=== PATIENT | male | born 1995 | race African-American/Black ===

== ENCOUNTER 2019-06-15 23:10 | Emergency (ER) | payer OTHER ==
[2019-06-15] MEDS ORDERED: DIPHENHYDRAMINE 50 MG/ML VIAL ONE (23:53)
[2019-06-15] MEDS ORDERED: FAMOTIDINE 20 MG/2 ML VIAL IV ONE (23:53)
[2019-06-15] MEDS ORDERED: METHYLPREDNISOLONE 125 MG INJ ONE (23:53)
[2019-06-16 00:07] LABS: Urine Blood NEGATIVE (NEG); Urine Glucose NEGATIVE (NEG); Urine Protein NEGATIVE (NEG); Urine Specific Gravity >1.030 (1.005-1.030); Urine pH 6.5 (5.0-7.0)
--- NOTE | 2019-06-16 01:18 | EDPHYS ---
Physician Documentation [facility] Name: Dany Arce Age: 24 yrs Sex: Male : 1995 Arrival Date: 06/15/2019 Time: 23:15 Bed 20 Private MD: Dacia Saldivar ED Physician Emmanuel Berumen HPI: 06/16 03:21 This 24 yrs old Black Male presents to ER via Ambulatory with complaints of Allergic tw4 Reaction, Breathing Difficulty. 03:21 The patient presents with rash, of the right cheek and left cheek, redness of skin. tw4 Onset: The symptoms/episode began/occurred today. Associated signs and symptoms: The patient has no apparent associated signs or symptoms. Possible causes: The patient has no known obvious cause for the symptoms. At home the patient or guardian has treated the symptoms with nothing. The patient has not experienced similar symptoms in the past. Historical: - Allergies: 06/15 23:26 No Known Allergies; ak1 - Home Meds: 23:26 None [Active]; ak1 - PMHx: 23:26 Down Syndrome; ak1 - PSHx: 23:26 Tonsillectomy; ak1 - Immunization history:: Adult Immunizations up to date, pt PCP Dr. Barfield. - Social history:: Smoking status: Patient/guardian denies using tobacco. - Ebola Screening: : No symptoms or risks identified at this time. ROS: 06/16 03:21 Constitutional: Negative for fever, chills, and weight loss, Eyes: Negative for injury, tw4 pain, redness, and discharge, Cardiovascular: Negative for chest pain, palpitations, and edema, Respiratory: Negative for shortness of breath, cough, wheezing, and pleuritic chest pain, Abdomen/GI: Negative for abdominal pain, nausea, vomiting, diarrhea, and constipation, Back: Negative for injury and pain. Skin: Positive for rash. Exam: 03:21 Constitutional: This is a well developed, well nourished patient who is awake, alert, tw4 and in no acute distress. Head/Face: Normocephalic, atraumatic. Chest/axilla: Normal chest wall appearance and motion. Nontender with no deformity. No lesions are appreciated. Cardiovascular: Regular rate and rhythm with a normal S1 and S2. No gallops, murmurs, or rubs. Normal PMI, no JVD. No pulse deficits. Respiratory: Lungs have equal breath sounds bilaterally, clear to auscultation and percussion. No rales, rhonchi or wheezes noted. No increased work of breathing, no retractions or nasal flaring. Abdomen/GI: Soft, non-tender, with normal bowel sounds. No distension or tympany. No guarding or rebound. No evidence of tenderness throughout. 03:21 Skin: urticaria. Vital Signs: 06/15 23:24 BP 131 / 81; Pulse 107; Resp 18; Temp 98.7(TE); Pulse Ox 100% on R/A; Weight 105.82 kg ak1 (M); 06/16 00:15 BP 119 / 75; Pulse 90; Resp 18; Temp 98.5; Pulse Ox 98% ; rr5 01:15 BP 122 / 80; Pulse 95; Resp 17; Pulse Ox 99% on R/A; rr5 MDM: 06/15 23:28 Patient medically screened. tw4 06/16 03:21 Differential diagnosis: angioedema, urticaria. Data reviewed: vital signs, nurses tw4 notes. Counseling: I had a detailed discussion with the patient and/or guardian regarding: the historical points, exam findings, and any diagnostic results supporting the discharge/admit diagnosis. Medication response: Solumedrol. Special discussion: I discussed with the patient/guardian in detail that at this point there is no indication for admission to the hospital. It is understood, however, that if the symptoms persist or worsen the patient needs to return immediately for re-evaluation. 06/15 23:53 Order name: Urine Dipstick--Ancillary (enter results) mw2 Administered Medications: 00:00 Drug: Pepcid 20 mg Route: IVP; Site: left antecubital; rr5 01:00 Follow up: Response: No adverse reaction rr5 00:02 Drug: Benadryl 25 mg Route: IVP; Site: left antecubital; rr5 01:00 Follow up: Response: No adverse reaction rr5 00:04 Drug: SOLU-Medrol 125 mg Route: IVP; Site: left antecubital; rr5 01:05 Follow up: Response: No adverse reaction rr5 Disposition: 06/16/19 01:17 Discharged to Home. Impression: Allergic reaction. - Condition is Stable. - Discharge Instructions: Allergies, Adult. - Prescriptions for Medrol (Incoente) 4 mg Oral Tablets, Dose Pack - take 1 tablet by ORAL route as directed - follow package instructions; 1 packet. - Medication Reconciliation Form, Thank You Letter, Antibiotic Education, Prescription Opioid Use form. - Follow up: Dacia Saldivar MD; When: Upon discharge from the Emergency Department; Reason: If symptoms return, Recheck today's complaints, Continuance of care. - Problem is new. - Symptoms have improved. Signatures: Dispatcher [employer] EDMS Sabrina Ashraf RN RN ak1 Emmanuel Berumen MD MD tw4 August Deasi RN RN rr5 Corrections: (The following items were deleted from the chart) 01:28 01:17 06/16/2019 01:17 Discharged to Home. Impression: Allergic reaction. Condition is rr5 Stable. Forms are Medication Reconciliation Form, Thank You Letter, Antibiotic Education, Prescription Opioid Use. Follow up: Dacia Saldivar; When: Upon discharge from the Emergency Department; Reason: If symptoms return, Recheck today's complaints, Continuance of care. Problem is new. Symptoms have improved. tw4
--- NOTE | 2019-06-16 01:18 | ER ---
Nurse's Notes [facility] Name: Dany Arce Age: 24 yrs Sex: Male : 1995 Arrival Date: 06/15/2019 Time: 23:15 Bed 20 Private MD: Dacia Saldivar Diagnosis: Allergic reaction Presentation: 06/15 23:26 Presenting complaint: Mother states: at 1900 pt with swelling under both eyes, ak1 bilateral eye redness. pt was given Benadryl at 1945. mother stated pt with swelling at the neck area. no resp distress, no drooling noted during triage. Transition of care: patient was not received from another setting of care. Onset: The symptoms/episode began/occurred today. Anaphylaxis evaluation, no signs or symptoms of anaphylaxis were noted. Onset of symptoms was June 15, 2019 at 19:30. Risk Assessment: Do you want to hurt yourself or someone else? Patient reports no desire to harm self or others. Initial Sepsis Screen: Does the patient meet any 2 criteria? No. Patient's initial sepsis screen is negative. Does the patient have a suspected source of infection? No. Patient's initial sepsis screen is negative. Care prior to arrival: None. 23:26 Method Of Arrival: Ambulatory ak1 23:26 Acuity: NILDA 4 ak1 Triage Assessment: 23:26 General: Appears in no apparent distress. Behavior is calm, cooperative. Pain: Denies ak1 pain. Historical: - Allergies: 23:26 No Known Allergies; ak1 - Home Meds: 23:26 None [Active]; ak1 - PMHx: 23:26 Down Syndrome; ak1 - PSHx: 23:26 Tonsillectomy; ak1 - Immunization history:: Adult Immunizations up to date, pt PCP Dr. Barfield. - Social history:: Smoking status: Patient/guardian denies using tobacco. - Ebola Screening: : No symptoms or risks identified at this time. Screenin:28 Abuse screen: Denies threats or abuse. Denies injuries from another. Nutritional ak1 screening: No deficits noted. Tuberculosis screening: No symptoms or risk factors identified. Fall Risk None identified. Assessment: 23:35 General: Appears in no apparent distress. comfortable, Behavior is calm, cooperative. rr5 Pain: Denies pain. Neuro: Level of Consciousness is awake, alert, obeys commands, Oriented to person, down syndrome. Cardiovascular: Capillary refill < 3 seconds Patient's skin is warm and dry. Respiratory: Airway is patent Respiratory effort is even, unlabored, Respiratory pattern is regular, symmetrical, Breath sounds are clear bilaterally. GI: No signs and/or symptoms were reported involving the gastrointestinal system. : No signs and/or symptoms were reported regarding the genitourinary system. EENT: Eyes swelling. Parent/caregiver reports the patient having eyes swelling. Derm: Skin temperature is warm Parent/caregiver reports the patient having swelling on the neck area. Musculoskeletal: Circulation, motion, and sensation intact. Capillary refill < 3 seconds. 06/16 00:30 Reassessment: Patient appears in no apparent distress at this time. Patient and/or rr5 family updated on plan of care and expected duration. Pain level reassessed. awaiting for review. 01:25 Reassessment: Patient appears in no apparent distress at this time. Patient and/or rr5 family updated on plan of care and expected duration. Pain level reassessed. discharge instruction given and explained to hospital coordinator without complaints made. verbalized understanding. Patient states feeling better. Patient states symptoms have improved. Vital Signs: 06/15 23:24 BP 131 / 81; Pulse 107; Resp 18; Temp 98.7(TE); Pulse Ox 100% on R/A; Weight 105.82 kg ak1 (M); 06/16 00:15 BP 119 / 75; Pulse 90; Resp 18; Temp 98.5; Pulse Ox 98% ; rr5 01:15 BP 122 / 80; Pulse 95; Resp 17; Pulse Ox 99% on R/A; rr5 ED Course: 06/15 23:15 Patient arrived in ED. es 23:15 Dacia Saldivar MD is Private Physician. es 23:19 August Desai RN is Primary Nurse. rr5 23:24 Arm band placed on Patient placed in an exam room, on a stretcher, Patient notified of ak1 wait time. 23:28 Triage completed. ak1 23:29 Emmanuel Berumen MD is Attending Physician. tw4 23:35 Patient has correct armband on for positive identification. Bed in low position. Call rr5 light in reach. 23:55 Inserted saline lock: 24 gauge in left antecubital area, using aseptic technique. rr5 ,using aseptic technique. by baltazar injection mold technician. 06/16 01:16 Dacia Saldivar MD is Referral Physician. tw4 01:27 No provider procedures requiring assistance completed. IV discontinued, intact, rr5 bleeding controlled, No redness/swelling at site. Pressure dressing applied. Administered Medications: 00:00 Drug: Pepcid 20 mg Route: IVP; Site: left antecubital; rr5 01:00 Follow up: Response: No adverse reaction rr5 00:02 Drug: Benadryl 25 mg Route: IVP; Site: left antecubital; rr5 01:00 Follow up: Response: No adverse reaction rr5 00:04 Drug: SOLU-Medrol 125 mg Route: IVP; Site: left antecubital; rr5 01:05 Follow up: Response: No adverse reaction rr5 Outcome: 01:17 Discharge ordered by . tw4 01:27 Discharged to home ambulatory, with family. rr5 01:27 Condition: stable 01:27 Discharge instructions given to family, Instructed on discharge instructions, follow up and referral plans. Demonstrated understanding of instructions, follow-up care, medications, Prescriptions given X 1. 01:28 Patient left the ED. rr5 Signatures: Deja Grover Amber RN RN ak1 Emmanuel Berumen MD MD tw4 August Desai RN RN rr5
== END 2019-06-16 01:28 | disposition home or self-care (01) ==
LOC: ER 23:10
DX: T78.40XA Allergy, unspecified, initial encounter (principal); X58.XXXA Exposure to other specified factors, initial encounter
CPT/HCPCS: 81003; 96375; 96374; 99283; J2930

== ENCOUNTER 2020-06-27 20:09 | Emergency (ER) | payer OTHER ==
--- OUTSIDE RECORDS SUMMARY | 2020-06-27 20:12 | XMS REPORT | Continuity of Care Document ---
:1995 Author Organization [facility] t Address [address] [place] [address] Care Team Providers Name Role Phone Mika Bingham Attending Clinician Problems This patient has no known problems. Allergies, Adverse Reactions, Alerts This patient has no known allergies or adverse reactions. Medications This patient has no known medications. Procedures This patient has no known procedures. Encounters Start End Encounter Admission Attending Care Care Encounter Source Date/Time Date/Time Type Type Clinicians Facility Department ID 2020-03-07 2020-03-07 Office LULU Vazquez [id number] 09:52:41 10:07:41 Visit [facility] [id number] Surgical [id number] Specialti [id number] [place] Results This patient has no known results.
--- NOTE | 2020-06-27 21:02 | RAD REPORT ---
EXAM DESCRIPTION: CT - Spine Lumbar Wo Con - 06/27/2020 8:50 pm CLINICAL HISTORY: Radiculopathy. LOWER BACK PAIN COMPARISON: No comparisons TECHNIQUE: Axial noncontrast CT imaging of the lumbar spine was performed with coronal and sagittal re-formatted images. All CT scans are performed using dose optimization technique as appropriate and may include automated exposure control or mA/KV adjustment according to patient size. FINDINGS: No acute lumbar spine fracture seen. No aggressive marrow pattern or malalignment. Paraspinal tissues are normal in thickness. No paraspinal abscess or hematoma seen. Mild posterior disc bulge is seen at the lower lumbar levels. IMPRESSION: No acute lumbar spine finding. Mild posterior disc bulges at the lower lumbar levels seen.
--- NOTE | 2020-06-27 21:06 | RAD REPORT ---
EXAM DESCRIPTION: CT - Pelvis Wo Cont - 06/27/2020 8:50 pm CLINICAL HISTORY: PAIN Pain and swelling COMPARISON: No comparisons TECHNIQUE: All CT scans are performed using dose optimization technique as appropriate and may inclu de automated exposure control or mA/KV adjustment according to patient size. FINDINGS: No fracture, dislocation or evidence of AVN. Both sacroiliac joints are symmetric. Both sacral ala are intact. No soft tissue mass or hematoma seen. Moderate stool is present in the rectosigmoid colon. IMPRESSION: No acute finding is evident.
--- NOTE | 2020-06-27 21:18 | ER ---
Nurse's Notes [facility] Name: Dany Arce Age: 25 yrs Sex: Male : 1995 Arrival Date: 06/27/2020 Time: 20:12 Bed 18 Private MD: Diagnosis: Low back pain-bulging disc Presentation: 06/27 20:42 Chief complaint: Parent and/or Guardian states: " For the past 2.5 to 3 weeks he's been vc walking around acting like he doesn't want to bend over. He says "I hurt" and wants to just sit down.". Coronavirus screen: Client denies travel out of the [place] in the last 14 days. At this time, the client does not indicate any symptoms associated with coronavirus-19. Ebola Screen: No symptoms or risks identified at this time. Initial Sepsis Screen: Does the patient meet any 2 criteria? HR > 90 bpm. No. Patient's initial sepsis screen is negative. Does the patient have a suspected source of infection? No. Patient's initial sepsis screen is negative. Risk Assessment: Do you want to hurt yourself or someone else? Patient reports no desire to harm self or others. Onset of symptoms is unknown. 20:42 Method Of Arrival: Wheelchair vc 20:42 Acuity: NILDA 4 vc Triage Assessment: 20:45 General: Appears in no apparent distress. comfortable, Behavior is calm, cooperative. vc Pain: Unable to use pain scale. Patient unable to verbalize whether or not he is in pain. Patient does not appear to be in any pain. Historical: - Allergies: 20:44 No Known Allergies; vc - Home Meds: 20:44 None [Active]; vc - PMHx: 20:44 down syndrome; vc - PSHx: 20:44 Tonsillectomy; vc - Immunization history:: Adult Immunizations up to date. - Social history:: Smoking status: Patient denies any tobacco usage or history of. Screenin:44 Abuse screen: Denies threats or abuse. Nutritional screening: No deficits noted. vc Tuberculosis screening: No symptoms or risk factors identified. Fall Risk None identified. Assessment: 20:20 General: Appears in no apparent distress. uncomfortable, obese, Behavior is vc cooperative, quiet. Neuro: Level of Consciousness is awake, obeys commands, Oriented to person. Cardiovascular: Capillary refill < 3 seconds Patient's skin is warm and dry. Respiratory: No deficits noted. GI: No signs and/or symptoms were reported involving the gastrointestinal system. : No signs and/or symptoms were reported regarding the genitourinary system. Derm: Skin is intact, is healthy with good turgor, Skin temperature is warm. 21:45 Reassessment: Patient and/or family updated on plan of care and expected duration. Pain vc level reassessed. Patient is alert, oriented x 3, equal unlabored respirations, skin warm/dry/pink. Waiting on disc from CT. 22:05 Reassessment: Patient and/or family updated on plan of care and expected duration. Pain vc level reassessed. Patient is alert, oriented x 3, equal unlabored respirations, skin warm/dry/pink. Vital Signs: 20:42 BP 116 / 49; Pulse 104; Resp 16; Temp 99.4; Pulse Ox 96% on R/A; vc ED Course: 20:12 Patient arrived in ED. cf2 20:19 Laura Valerio, RN is Primary Nurse. vc 20:22 Zainab Walden FNP-C is PHCP. kb 20:22 Rafael Gonzalez MD is Attending Physician. kb 20:44 Triage completed. vc 20:46 Arm band placed on. vc 20:46 Patient has correct armband on for positive identification. Patient has correct armband vc on for positive identification. Bed in low position. Adult w/ patient. Pulse ox on. NIBP on. 20:50 CT Lumbar Spine Wo Con In Process Unspecified. EDMS 20:[address] In Process Unspecified. EDMS 22:00 No provider procedures requiring assistance completed. Patient did not have IV access vc during this emergency room visit. Administered Medications: No medications were administered Outcome: 21:18 Discharge ordered by . kb 21:45 Discharged to home ambulatory, with family. vc 21:45 Condition: good 21:45 Discharge instructions given to family, waterproofer helper, Instructed on discharge instructions, follow up and referral plans. medication usage, Demonstrated understanding of instructions, follow-up care, medications, Prescriptions given X 2. 22:07 Patient left the ED. vc Signatures: Dispatcher [employer] EDOK Zainab Walden FNP-C FNP-Ckb Frazier Celesta cf2 Laura Valerio, RN RN vc Corrections: (The following items were deleted from the chart) 22:48 22:06 Reassessment: Waiting on disc from CT. vc vc
--- NOTE | 2020-06-27 21:18 | EDPHYS ---
Physician Documentation [facility] Name: Dany Arce Age: 25 yrs Sex: Male : 1995 Arrival Date: 06/27/2020 Time: 20:12 Bed 18 Private MD: EDWARD Physician Rafael Gonzalez HPI: 06/27 22:04 This 25 yrs old Black Male presents to ER via Wheelchair with complaints of Body Pain. kb 22:04 The patient presents with pain that is acute, with no known mechanism of injury. The kb symptoms are located in the unknown. Onset: The symptoms/episode began/occurred 3 week(s) ago. Modifying factors: The patient symptoms are alleviated by sitting. Associated signs and symptoms: Pertinent positives: none Pertinent negatives: abdominal pain, fever, urinary retention, weakness. Severity of symptoms: At their worst the symptoms were moderate, in the emergency department the symptoms have resolved. The patient has not experienced similar symptoms in the past. The patient has not recently seen a physician. Mother reports pt has been having episodes of pain intermittently for 3 weeks. States he will be in pain and then will not be. States she is unable to determine where the pain is coming from and the pt is unable to really tell her due to special needs. States they will [place] walking in the mall and after 20 minutes she can tell he is in pain and has to sit down. Reports times when she asks him to do something and he cannot bend over, he will bend to the side. Today she saw tears in his eyes so she wanted to get it checked out. Pt ambulated from wheelchair to stretcher, got onto stretcher without assist and had no obvious pain. Passive ROM of hips, knees and ankles with no distress noted. Pt has no complaints on palpation of extremities, pelvis or back. . Historical: - Allergies: 20:44 No Known Allergies; vc - Home Meds: 20:44 None [Active]; vc - PMHx: 20:44 down syndrome; vc - PSHx: 20:44 Tonsillectomy; vc - Immunization history:: Adult Immunizations up to date. - Social history:: Smoking status: Patient denies any tobacco usage or history of. ROS: 22:04 Constitutional: Negative for fever, chills, and weight loss, Cardiovascular: Negative kb for chest pain, palpitations, and edema, Respiratory: Negative for shortness of breath, cough, wheezing, and pleuritic chest pain, Abdomen/GI: Negative for abdominal pain, nausea, vomiting, diarrhea, and constipation, Back: Negative for injury and pain, MS/Extremity: Negative for injury and deformity, Skin: Negative for injury, rash, and discoloration, Neuro: Negative for headache, weakness, numbness, tingling, and seizure. Exam: 22:04 Constitutional: This is a well developed, well nourished patient who is awake, alert, kb and in no acute distress. Head/Face: Normocephalic, atraumatic. Chest/axilla: Normal chest wall appearance and motion. Nontender with no deformity. No lesions are appreciated. Cardiovascular: Regular rate and rhythm with a normal S1 and S2. No gallops, murmurs, or rubs. Normal PMI, no JVD. No pulse deficits. Respiratory: Lungs have equal breath sounds bilaterally, clear to auscultation and percussion. No rales, rhonchi or wheezes noted. No increased work of breathing, no retractions or nasal flaring. Abdomen/GI: Soft, non-tender, with normal bowel sounds. No distension or tympany. No guarding or rebound. No evidence of tenderness throughout. Back: No spinal tenderness. No costovertebral tenderness. Full range of motion. Skin: Warm, dry with normal turgor. Normal color with no rashes, no lesions, and no evidence of cellulitis. MS/ Extremity: Pulses equal, no cyanosis. Neurovascular intact. Full, normal range of motion. Neuro: Awake and alert, GCS 15, oriented to person, place, time, and situation. Cranial nerves II-XII grossly intact. Motor strength 5/5 in all extremities. Sensory grossly intact. Cerebellar exam normal. Normal gait. Vital Signs: 20:42 BP 116 / 49; Pulse 104; Resp 16; Temp 99.4; Pulse Ox 96% on R/A; vc MDM: 20:23 Patient medically screened. kb 21:58 Data reviewed: vital signs, nurses notes. Data interpreted: Pulse oximetry: on room air kb is 96 %. Interpretation: normal. Counseling: I had a detailed discussion with the patient and/or guardian regarding: the historical points, exam findings, and any diagnostic results supporting the discharge/admit diagnosis, radiology results, the need for outpatient follow up, a family practitioner, to return to the emergency department if symptoms worsen or persist or if there are any questions or concerns that arise at home. 06/27 20:36 Order name: CT Lumbar Spine Wo Con; Complete Time: 21:10 kb 06/27 20:36 Order name: Pelvis Wo Cont CT; Complete Time: 21:10 kb Administered Medications: No medications were administered Disposition: 06/27/20 21:18 Discharged to Home. Impression: Low back pain - bulging disc. - Condition is Stable. - Discharge Instructions: Musculoskeletal Pain, Back Pain, Adult, [id number], Back Exercises, [id number]. - Prescriptions for Ibuprofen 600 mg Oral Tablet - take 1 tablet by ORAL route every 6 hours As needed take with food; 30 tablet. Cyclobenzaprine 5 mg Oral Tablet - take 1 tablet by ORAL route 3 times per day As needed; 15 tablet. - Medication Reconciliation Form, Thank You Letter, Antibiotic Education, Prescription Opioid Use form. - Follow up: Emergency Department; When: As needed; Reason: Worsening of condition. Follow up: Private Physician; When: 2 - 3 days; Reason: Recheck today's complaints, Continuance of care, Re-evaluation by your physician. Addendum: 06/29/2020 08:46 Co-signature as Attending Physician, Rafael Gonzalez MD I agree with the assessment and c cardenas plan of care. Signatures: Dispatcher [employer] EDZainab Ojeda, FACILITY EXAMINER-C SASHA-Rafael Sánchez MD MD cha Calcote, Vanessa RN RN vc Corrections: (The following items were deleted from the chart) 06/27 22:07 21:18 06/27/2020 21:18 Discharged to Home. Impression: Low back pain - bulging disc. vc Condition is Stable. Forms are Medication Reconciliation Form, Thank You Letter, Antibiotic Education, Prescription Opioid Use. Follow up: Emergency Department; When: As needed; Reason: Worsening of condition. Follow up: Private Physician; When: 2 - 3 days; Reason: Recheck today's complaints, Continuance of care, Re-evaluation by your physician. kb
[2020-07-01 15:56] VITALS: BP 116/49; TEMP 99.4; O2SAT 96
== END 2020-06-27 22:07 | disposition home or self-care (01) ==
LOC: ER 20:09
DX: M51.27 Other intervertebral disc displacement, lumbosacral region (principal); Q90.9 Down syndrome, unspecified
CPT/HCPCS: 72131; 72192; 99283